=== PATIENT | male | born 1965 | race Caucasian/White ===

== ENCOUNTER → 2019-08-13 10:37 | Outpatient (CLI) | payer OTHER, SELFPAY ==
[2019-08-05 06:34] VITALS: BMI 30.1
--- NOTE | 2019-08-13 10:41 | RAD_ITS ---
STUDY: X-RAY - RIGHT HAND REASON FOR EXAM: Male, 53 years old. Injury to hand, base of right thumb pain TECHNIQUE: 3 view(s) of the hand. COMPARISON: None. FINDINGS: Normal radiocarpal articulation. Normal distal radioulnar joint. Normal visualized carpal bones. Normal carpal articulations Normal carpometacarpal articulation of the thumb. Normal second through fifth carpometacarpal joints. Normal metacarpi. Normal metacarpophalangeal joint of the thumb. Normal interphalangeal joint of the thumb. Normal proximal and distal phalanges of the thumb. Normal metacarpophalangeal joints of the second through fifth fingers. Normal proximal and distal interphalangeal joints of the second through fifth fingers. Normal phalanges of the second through fifth fingers. The soft tissue structures are unremarkable. RAD/Hand Min 3 Views IMPRESSION: Normal x-ray examination of the hand. Electronically Signed: Raciel Hutchins, at 11:06 EDT , Service support ,
== END ==
PROVIDERS: Referring Provider Physician Assistant Surgical; Visit Provider Physician Assistant Surgical
DX: S66.211A Strain of extensor muscle, fascia and tendon of right thumb at wrist and hand level, initial encounter (principal)
CPT/HCPCS: 73130

== ENCOUNTER → 2019-10-02 06:19 | Outpatient (CLI) | payer OTHER, SELFPAY ==
[2019-08-05 06:34] VITALS: BMI 30.1
--- NOTE | 2019-10-02 06:35 | MRI_ITS ---
STUDY: MRI LEFT SHOULDER REASON FOR EXAM: Left shoulder pain, limited range of motion. TECHNIQUE: Standardized fat and water weighted pulse sequences were obtained in all 3 orthogonal planes. COMPARISON: None. FINDINGS: There is a small signal void in the distal supraspinatus tendon measuring 0.4 cm in length (T2 coronal image 9; proton-density coronal image 9) suggestive of calcific tendinitis. There is no demonstrated supraspinatus tendon tear. Normal infraspinatus tendon. There is mild subscapularis tendinosis (proton density axial images 14, 15) without discrete tendon tear. Normal teres minor tendon. Normal supraspinatus muscle. Normal infraspinatus muscle. Normal subscapularis muscle. Normal teres minor muscle. Normal glenohumeral articulation. Normal humeral head and visualized proximal humerus. Normal biceps labral complex. Normal intracapsular long biceps tendon. There is a suspected small tear of the anterior labrum (proton density axial image 13) with a lobulated paralabral cyst (T2 sagittal images 1-3) measuring 0.1 cm in length. Normal capsulo- ligamentous complex. There is acromioclavicular arthrosis without substantial undersurface osteophytes (T2 sagittal image 7). There is a Type II morphology (curved), with a neutral orientation. There is no subacromial-subdeltoid bursal fluid. Normal visualized coracohumeral and coracoacromial ligaments. Normal deltoid muscle. Normal trapezius muscle. MRI/Upper Ext Joint Only(Routine) IMPRESSION: Small signal void in the supraspinatus tendon suggestive of calcific tendinitis. Mild subscapularis tendinosis without demonstrated rotator cuff tear. Suspected small anterior labral tear with paralabral cyst. Acromioclavicular arthrosis. Electronically Signed: Carlos Mcguire MD at 8:37 EDT Tel , Service support ,
== END ==
PROVIDERS: Referring Provider Family Medicine; Visit Provider Family Medicine
DX: S46.912A Strain of unspecified muscle, fascia and tendon at shoulder and upper arm level, left arm, initial encounter (principal); S66.211A Strain of extensor muscle, fascia and tendon of right thumb at wrist and hand level, initial encounter; X58.XXXA Exposure to other specified factors, initial encounter; M19.012 Primary osteoarthritis, left shoulder
CPT/HCPCS: 73221